=== PATIENT | male | born 1990 | race Caucasian/White ===

== ENCOUNTER 2018-04-25 11:04 | Emergency (ER) | payer OTHER ==
[~2018-04-25] VITALS: Ht 177.8 cm; Wt 74.8 kg
[~2018-04-25 11:04] MED LIST: AMOXIL500 MG PO; ANTIVERT12.5 MG PO; NASONEX0.05 MG/Ac INH; PREDNISONE 20MG20 MG PO
[2018-04-25 11:12] VITALS: BP 125/79
--- NOTE | 2018-04-25 11:15 | ED ANIMAL BITE/WOUND CHECK ---
History of Present Illness General Chief Complaint: Suture Removal/Wound Recheck Stated Complaint: SUTURE REMOVAL Source: patient Exam Limitations: no limitations Vital Signs & Intake/Output Vital Signs & Intake/Output Vital Signs Date Time Temp Pulse Resp B/P B/P Pulse O2 O2 Flow FiO2 Mean Ox Delivery Rate 04/25 1112 96.3 89 18 125/79 96 Room Air Allergies Coded Allergies: NO KNOWN ALLERGIES (09/24/13) Reconcile Medications Amoxicillin (Amoxil) 500 MG CAP 1 TAB PO BID PHARYNGITIS Mometasone Furoate (Nasonex) 0.05 MG/Actuation SPR 1 SPRAY INH BID CONGESTION Prednisone 20 MG TABLET 3 TAB PO DAILY PHARYNGITIS Triage Note: PT FROM HOME C/O SUTURE REMOVAL TO LEFT LOWER EXT. PT SEEN HERE LAST THURSDAY FOR A LAC TO LLE FROM A TABLET TESTER. PTS VSS. IRWIN GATES IN TRIAGE. Triage Nurses Notes Reviewed? yes Onset: Abrupt Duration: day(s): (10), better, continues in ED Timing: single episode today Is Injury an Animal Bite? No Severity: mild, moderate No Modifying Factors: none HPI: 27-year-old male presents for suture removal. He was seen here last week with a laceration to his left lower leg from a sweat box attendant. It was repaired with sutures. Patient area clean and dry. Denies any pain or redness discharge or swelling. No fevers. He feels it is healing well. (Jarrod Leroy) Past History Travel History Traveled to [place] past 21 day No Medical History Any Pertinent Medical History? see below for history Neurological: NONE Cardiovascular: NONE Respiratory: NONE Gastrointestinal: NONE Hepatic: NONE Renal: NONE Musculoskeletal: NONE Psychiatric: NONE Endocrine: NONE Surgical History Surgical History: non-contributory Psychosocial History What is your primary language Italian Tobacco Use: Current Daily Use Daily Tobacco Use Amount/Type: =< 4 Cigarettes daily Family History Hx Contributory? No (Jarrod Leryo) Review of Systems Review of Systems Constitutional: Reports: no symptoms. EENTM: Reports: no symptoms. Respiratory: Reports: no symptoms. Cardiovascular: Reports: no symptoms. GI: Reports: no symptoms. Genitourinary: Reports: no symptoms. Musculoskeletal: Reports: no symptoms. Skin: Reports: see HPI (LACERATION). Neurological/Psychological: Reports: no symptoms. Hematologic/Endocrine: Reports: no symptoms. Immunologic/Allergic: Reports: no symptoms. All Other Systems: Reviewed and Negative (Jarrod Leroy) Physical Exam Physical Exam General Appearance: well developed/nourished, no apparent distress, alert, awake Head: atraumatic, normal appearance Eyes: Bilateral: normal appearance, EOMI. Ears, Nose, Throat: hearing grossly normal Neck: normal inspection, supple, full range of motion Respiratory: no respiratory distress Back: normal inspection, normal range of motion Extremities: normal range of motion Neurologic/Psych: no motor/sensory deficits, awake, alert, oriented x 3, normal gait Skin: intact, normal color, warm/dry, A 2 CM WELL-HEALED LACERATION WITH SUTURES INTACT IS PRESENT TO THE LATERAL LEFT LOWER LEG. nO SURROUNDING ERYTHEMA ANDNODISCHARGE.wOUNDISWELLAPPROXIMATED. (Jarrod Leroy) Progress Differential Diagnosis: abscess, cellulitis, joint infection Plan of Care: Patient is here for suture removal. The wound is well-healed. Sutures removed without complication. Discussed continuing wound care procedures. Discussed return PRECAUTIONS patient agrees the plan (Jarrod Leroy) Departure Departure Disposition: HOME OR SELF CARE Condition: Stable Clinical Impression Primary Impression: Encounter for removal of sutures Referrals: Kandy ROBLES,Marylu Hawk (PCP/Family) Additional Instructions: keep the area clean and dry. look out for signs of infection like redness swelling discharge or pain. return with any concenrs. Departure Forms: Customer Survey General Discharge Information (Jarrod Leroy) PA/MELTER SUPERVISOR Co-Sign Statement Statement: ED Attending supervision documentation- [] I saw and evaluated the patient. I have also reviewed all the pertinent lab results and diagnostic results. I agree with the findings and the plan of care as documented in the PA's/MELTER SUPERVISOR's documentation. [x] I have reviewed the ED Record and agree with the PA's/MELTER SUPERVISOR's documentation. [] Additions or exceptions (if any) to the PAs/MELTER SUPERVISOR's note and plan are summarized below: [] (Kg ROBLES,[facility])
== END 2018-04-25 11:30 ==
LOC: ERH 11:04
DX: Z48.02 Encounter for removal of sutures (principal)